=== PATIENT | male | born 1960 | race Caucasian/White ===

== ENCOUNTER 2020-09-04 07:18 | Day surgery (SDC) | payer BC, SELFPAY ==
[2020-09-02 09:22] VITALS: BMI 27.8
--- NOTE | 2020-09-02 09:30 | HO.ANESPROP2 ---
Documented by User: Irina Roberts 09/02/20 09:32 HPI - Anesthesia Eval Consult details Narrative: 59yo M for screening colonoscopy [facility] Past Medical History Medical History BPH (benign prostatic hyperplasia) Hyperlipidemia Hypertension Sleep apnea Surgical History Surgical History Hx of colonoscopy Social History Social History Smoking Status: Never smoker Use of substances other than those prescribed or required for medical reasons: No Advance Directives: No Advance Directives Information Provided: Yes Advance Directives on File: No Meds Allergies Allergy/AdvReac Type Severity Reaction Status Date / Time No Known Allergies Allergy Verified 09/02/20 09:20 Home Medications Medication Instructions Recorded Confirmed Type amlodipine-olmesartan 1 tab PO DAILY 09/02/20 09/02/20 History rosuvastatin 1 tab PO DAILY 09/02/20 09/02/20 History Exam Exam Date and Time: September 02, 2020 0930 Height,Weight and Vital Signs: Height 5 ft 8 in Weight 83.007 kg Assessment and Plan Assessment Anesthesia Assessment: Chart Reviewed Documented by User: De Castro MD 09/04/20 07:49 [facility] Past Medical History Medical History BPH (benign prostatic hyperplasia) Hyperlipidemia Hypertension Sleep apnea Surgical History Surgical History Hx of colonoscopy Social History Social History Smoking Status: Never smoker Use of substances other than those prescribed or required for medical reasons: No Advance Directives: No Advance Directives Information Provided: Yes Advance Directives on File: No Meds Allergies Allergy/AdvReac Type Severity Reaction Status Date / Time No Known Allergies Allergy Verified 09/02/20 09:20 Home Medications Medication Instructions Recorded Confirmed Type amlodipine-olmesartan 1 tab PO DAILY 09/02/20 09/02/20 History rosuvastatin 1 tab PO DAILY 09/02/20 09/02/20 History Exam Airway Mallampati Class: II TM Dist: >3cm Neck ROM: Full Loose/Missing/Broken Teeth: No Heart: rrr Lungs: nl Other: ao Assessment and Plan Assessment Anesthesia Assessment: Anesthesia Plan Discussed and Chart Reviewed Final Anesthetic Review NPO: Yes ASA Class: II Final Preanesthetic Review: No Changes in Pt Med Stat, Meds/Allgs Chart Reviewed, Consent Obtained/Reviewed and Anes Risks/Benef Reviewed Patient Risk: Intermediate Procedure Risk: Low Assessment/Block/Sedation in SS: Assess/Block/Sedation-SS Anesthetic Plan Anesthetic Plan: MAC: Disposition: Standard PACU
[2020-09-04 07:50] VITALS: BP 145/92; PULSE 93; RESP 16; TEMP 36.3; O2SAT 100
--- NOTE | 2020-09-04 07:54 | PC.NURSE ---
This RN attempted IV access x2 unsuccesssful. 22g to Right AC obtained by Angela BRADY
[2020-09-04] MEDS: Lactated Ringers 1,000 ML 100 ML IVCONT (07:56)
--- NOTE | 2020-09-04 08:14 | MHC.SHP ---
Pre-Procedural Eval Section A The patient is an INPATIENT: No The History & Physical has been completed within 30 days and I have reviewed it.: No Section B Chief Complaint: screening Details of Present Illness: Colon cancer screening--non high risk Relevant Family History (Specify if Yes): No Relevant Social History: None Present Medications: see Short Stay Collaborative assessment Medical History: Significant History (Hypertension, Hyperlipidemia) History of Previous Operations: Relevant previous surgery/procedure and date(s) (2008-Colonoscopy--neg) Allergies: Allergies Allergy/AdvReac Type Severity Reaction Status Date / Time No Known Allergies Allergy Verified 09/02/20 09:20 Review of Systems Sugical H&P ROS: Negative: Constitution, Cardiovascular and Respiratory Review of Systems Comment: General ros is negative Exam Surgical H&P Exam: Normal: HEENT, Normal: Heart, Normal: Lungs and Normal: Extremities Exam Comment: Normal exam Plan Diagnosis/Plan: Unchanged Patient has been examined and remains a candidate for the planned procedure--YES
[2020-09-04 09:07] VITALS: BP 114/71; PULSE 87; RESP 16; TEMP 36.1; O2SAT 99
[2020-09-04 09:21] VITALS: BP 124/79; PULSE 61; RESP 18; TEMP 36.2; O2SAT 96
--- NOTE | 2020-09-04 09:53 | HO.POSTANES ---
Post Anesthesia Evaluation Post Anesthesia Evaluation Vital Signs: Vital Signs Temp Pulse Resp BP Pulse Ox 09/04/20 09:21 97.2 F 61 18 124/79 96 09/04/20 09:07 97 F 87 16 114/71 99 09/04/20 07:50 97.4 F 93 16 145/92 H 100 Anesthesia: Monitored Mental Status: Awake Pain Control: Satisfactory Nausea/Vomiting: None Hydration: Adequate Anesthesia-Related Issues: No Anes. Related Issues
--- NOTE | 2020-09-04 20:24 | OP_ITS ---
SURGEON: Halie Ramos MD PREOPERATIVE DIAGNOSIS: Colon cancer screening. POSTOPERATIVE DIAGNOSIS: Diverticulosis. PROCEDURE PERFORMED: Colonoscopy. ESTIMATED BLOOD LOSS: No blood loss. COMPLICATIONS: No complications. ANESTHESIA: Monitored. ANESTHESIOLOGIST: Nayan Garcia CRNA ASSISTANTS: NONE SPECIMENS: No specimens removed. CAREER DEVELOPMENT FACILITATOR: Dr. Ramos. FINDINGS: Digital rectal exam revealed prostate to be slightly enlarged. No nodularity appreciated. No firmness. Video colonoscope was introduced without difficulty. It was navigated into the rectosigmoid. There was some submucosal hemorrhagic change, prep effect in the region of the rectosigmoid, sigmoid associated with some diverticulosis and suspected mild prolapse. Scope advanced through this area on up through descending, transverse, ascending colon down into the cecum. Appendiceal orifice was seen. Ileocecal valve was well seen. No mucosal abnormalities were appreciated. Slow rotational views on withdrawing the scope. No additional mucosal lesions were seen. 1+ internal hemorrhoids were noted on withdrawing the scope. PLAN AND CURRENT RECOMMENDATIONS: Repeat asymptomatic screening in this patient is 10 years. The patient was reminded that any intercurrent bleeding or iron deficiency would warrant earlier exam. GRAFT OR IMPLANTS: No grafts or implants. CONDITION: Postprocedure, stable. Halie Ramos MD MEN/MODL / [id number] MTDD
== END 2020-09-04 10:00 | disposition home or self-care (01) ==
PROVIDERS: Internal Medicine Gastroenterology; PCP Internal Medicine; Visit Provider Internal Medicine
PROC: 0DJD8ZZ Inspection of Lower Intestinal Tract, Via Natural or Artificial Opening Endoscopic (ICD-10-PCS; CPT 45378; principal; 2020-09-04 08:20)
DX: Z12.11 Encounter for screening for malignant neoplasm of colon (principal); K57.30 Diverticulosis of large intestine without perforation or abscess without bleeding; K64.8 Other hemorrhoids; I10 Essential (primary) hypertension; E78.5 Hyperlipidemia, unspecified; G47.33 Obstructive sleep apnea (adult) (pediatric); Z79.899 Other long term (current) drug therapy
CPT/HCPCS: 45378

== ENCOUNTER 2020-09-11 09:22 | Outpatient (REF) | payer BC, SELFPAY ==
[2020-09-11 11:24] LABS: Hematocrit 43.9 % (42-52); Hemoglobin 14.4 g/dl (14.0-18.0); Mean Corpuscular HGB Conc 32.8 g/dl (31.0-36.0); Mean Corpuscular Hemoglobin 30.1 pg (27.0-33.0); Mean Corpuscular Volume 91.8 fL (80-98); Mean Platelet Volume 9.5 fL (9.4-12.4); Platelet Count 228 X10*3/uL (160-400); Red Blood Count 4.78 X10*6/uL (4.60-5.80); Red Cell Distribution Width 12.4 % (11.0-16.0); White Blood Count 5.6 X10*3/uL (4.8-10.8)
[2020-09-11 11:41] LABS: Alanine Aminotransferase 25 U/L (0-40); Albumin Level 4.5 g/dL (3.5-5.0); Alkaline Phosphatase 66 U/L (39-117); Anion Gap 14 (12-20); Aspartate Amino Transferase 24 U/L (5-37); Bilirubin Total 0.9 mg/dL (0.0-1.0); Blood Urea Nitrogen 21 mg/dL (9-16); Calcium 9.4 mg/dL (8.4-10.2); Carbon Dioxide 23 mmol/L (22-29); Chloride 108 mmol/L (96-108); Cholesterol 184 mg/dL; Estimated Glomerular Filt Rate > 60; Glucose Fasting 97 mg/dL (60-99); HDL Cholesterol 32 mg/dL; LDL Cholesterol Calculated 103 mg/dl; Potassium 4.1 mmol/l (3.3-5.1); Sodium 141 mmol/L (135-145); Total Protein 7.5 g/dL (6.5-8.0); Triglycerides 249 mg/dL
[2020-09-11 12:54] LABS: Glucose Urine UA NEG (NEG); Leukocyte Esterase Urine NEG (NEG); Nitrite Urine NEG (NEG); Specific Gravity - Urine >= 1.030 (1.005-1.025); Urine Blood NEG (NEG); Urine Ketones NEG (NEG); Urine Protein NEG (NEG-TRACE)
[2020-09-11 12:57] LABS: Appearance Urine CLEAR; Color Urine YELLOW
== END 2020-09-11 09:23 | disposition home or self-care (01) ==
LOC: HO.HMGCLDS 09:22
PROVIDERS: PCP Internal Medicine; Visit Provider Internal Medicine
DX: E78.5 Hyperlipidemia, unspecified (principal); I10 Essential (primary) hypertension
CPT/HCPCS: 36415; 80053; 80061; 81003; 84153; 85027

== ENCOUNTER → 2020-10-20 10:44 | Outpatient (BNVA) | payer BC, SELFPAY | PROVIDERS: PCP Internal Medicine; Referring Provider Internal Medicine; Visit Provider Nurse Practitioner | DX: Z76.89 Persons encountering health services in other specified circumstances (principal) ==

== ENCOUNTER 2021-03-16 08:15 | Outpatient (REF) | payer BC, SELFPAY ==
[2021-03-16 12:27] LABS: Alanine Aminotransferase 31 U/L (0-40); Albumin Level 4.5 g/dL (3.5-5.0); Alkaline Phosphatase 66 U/L (39-117); Anion Gap 14 (12-20); Aspartate Amino Transferase 22 U/L (5-37); Bilirubin Total 0.7 mg/dL (0.0-1.0); Blood Urea Nitrogen 13 mg/dL (9-16); Calcium 9.7 mg/dL (8.4-10.2); Carbon Dioxide 24 mmol/L (22-29); Chloride 107 mmol/L (96-108); Cholesterol 152 mg/dL; Estimated Glomerular Filt Rate > 60; Glucose Fasting 116 mg/dL (60-99); HDL Cholesterol 33 mg/dL; LDL Cholesterol Calculated 86 mg/dl; Potassium 4.3 mmol/L (3.3-5.1); Sodium 141 mmol/L (135-145); Total Protein 7.3 g/dL (6.5-8.0); Triglycerides 169 mg/dL
== END 2021-03-16 08:16 | disposition home or self-care (01) ==
LOC: HO.HMGCLDS 08:15
PROVIDERS: PCP Internal Medicine; Visit Provider Internal Medicine
DX: Z00.00 Encounter for general adult medical examination without abnormal findings (principal); E78.5 Hyperlipidemia, unspecified; I10 Essential (primary) hypertension
CPT/HCPCS: 36415; 80053; 80061

== ENCOUNTER 2022-11-04 08:42 | Outpatient (REF) | payer BC, SELFPAY ==
[2022-11-04 11:20] LABS: MANUAL DIFF FLAG NO
[2022-11-04 11:30] LABS: Appearance Urine Clear; Color Urine Yellow; Glucose Urine UA Negative (Negative); Leukocyte Esterase Urine Negative (Negative); Nitrite Urine Negative (Negative); PH 5.5 (5.0-9.0); Urine Blood Negative (Negative); Urine Ketones Negative (Negative); Urine Protein Negative (Neg-Trace)
[2022-11-04 11:44] LABS: Basophils Percent Auto 0.6 % (0-2); Eosinophils Absolute Auto 0.3 X10*3/uL (0.0-0.4); Eosinophils Percent Auto 4.1 % (0-4); Hematocrit 45.5 % (42.0-52.0); Hemoglobin 14.9 g/dl (14.0-18.0); Imm Gran Abs Auto 0.02 X10*3/uL (0.00-0.03); Imm Gran Pct Auto 0.3 % (0.0-0.4); Lymphocytes Absolute Auto 2.1 X10*3/uL (1.2-4.9); Mean Corpuscular HGB Conc 32.7 g/dl (31.0-36.0); Mean Corpuscular Hemoglobin 29.6 pg (27.0-33.0); Mean Corpuscular Volume 90.5 fL (80.0-98.0); Mean Platelet Volume 9.1 fL (9.4-12.4); Monocytes Absolute Auto 0.6 X10*3/uL (0.1-1.2); Monocytes Percent Auto 10.4 % (2-11); Neutrophils Absolute Auto 3.1 x10*3/uL (2.0-8.3); Neutrophils Percent Auto 50.6 % (45-73); Platelet Count 241 X10*3/uL (160-400); Red Blood Count 5.03 X10*6/uL (4.60-5.80); Red Cell Distribution Width 12.2 % (11.0-16.0); White Blood Count 6.2 X10*3/uL (4.8-10.8)
[2022-11-04 12:05] LABS: Estimated Average Glucose 123 mg/dL; Hemoglobin A1c % 5.9 %
[2022-11-04 13:26] LABS: Alanine Aminotransferase 35 U/L (0-40); Albumin Level 4.4 g/dL (3.5-5.0); Alkaline Phosphatase 69 U/L (39-117); Anion Gap 11 (12-20); Aspartate Amino Transferase 28 U/L (5-37); Bilirubin Total 0.8 mg/dL (0.0-1.0); Blood Urea Nitrogen 12 mg/dL (9-16); Calcium 9.7 mg/dL (8.4-10.2); Carbon Dioxide 25 mmol/L (22-29); Chloride 108 mmol/L (96-108); Cholesterol 146 mg/dL; Estimated Glomerular Filt Rate > 60; Glucose Fasting 119 mg/dL (60-99); HDL Cholesterol 30 mg/dL; LDL Cholesterol Calculated 77 mg/dl; Potassium 4.1 mmol/L (3.3-5.1); Sodium 140 mmol/L (135-145); Total Protein 7.1 g/dL (6.5-8.0); Triglycerides 195 mg/dL
== END 2022-11-04 08:43 | disposition home or self-care (01) ==
LOC: HO.HMGCLDS 08:42
PROVIDERS: PCP Internal Medicine; Visit Provider Internal Medicine
DX: I10 Essential (primary) hypertension (principal); R73.9 Hyperglycemia, unspecified; E78.5 Hyperlipidemia, unspecified
CPT/HCPCS: 36415; 80053; 80061; 81003; 83036; 85025

== ENCOUNTER 2024-05-10 09:42 | Outpatient (REF) | payer BC, SELFPAY ==
[2024-05-10 13:09] LABS: MANUAL DIFF FLAG NO
[2024-05-10 13:21] LABS: Basophils Percent Auto 0.7 % (0-2); Eosinophils Absolute Auto 0.2 X10*3/uL (0.0-0.4); Eosinophils Percent Auto 3.9 % (0-4); Hematocrit 44.3 % (42.0-52.0); Imm Gran Abs Auto 0.01 X10*3/uL (0.00-0.03); Imm Gran Pct Auto 0.2 % (0.0-0.4); Lymphocytes Percent Auto 32.8 % (20-40); Mean Corpuscular HGB Conc 33.9 g/dl (31.0-36.0); Mean Corpuscular Hemoglobin 31.3 pg (27.0-33.0); Mean Corpuscular Volume 92.3 fL (80.0-98.0); Mean Platelet Volume 9.1 fL (9.4-12.4); Monocytes Absolute Auto 0.6 X10*3/uL (0.1-1.2); Monocytes Percent Auto 10.3 % (2-11); Neutrophils Absolute Auto 3.1 x10*3/uL (2.0-8.3); Neutrophils Percent Auto 52.1 % (45-73); Platelet Count 236 X10*3/uL (160-400); Red Cell Distribution Width 12.4 % (11.0-16.0)
[2024-05-10 13:26] LABS: Appearance Urine Turbid; Color Urine Yellow; Glucose Urine UA Negative (Negative); Leukocyte Esterase Urine Negative (Negative); Nitrite Urine Negative (Negative); PH 5.5 (5.0-9.0); Specific Gravity - Urine 1.025 (1.005-1.025); Urine Blood Negative (Negative); Urine Ketones Negative (Negative); Urine Protein Negative (Neg-Trace)
[2024-05-10 13:30] LABS: Bacteria Urine None Seen (None Seen); Hyaline Casts Urine 0-2 /LPF (0-2); RBC Urine 0-2 /HPF (0-2); Squamous Epithelial Cell Urine 0-2 /HPF (0-2); WBC Urine 0-5 /HPF (0-5)
[2024-05-10 13:32] LABS: Estimated Average Glucose 126 mg/dL
[2024-05-10 13:40] LABS: Alanine Aminotransferase 49 U/L (0-40); Albumin Level 4.3 g/dL (3.5-5.0); Alkaline Phosphatase 65 U/L (39-117); Anion Gap 12 (12-20); Aspartate Amino Transferase 37 U/L (5-37); Blood Urea Nitrogen 15 mg/dL (9-16); Calcium 9.5 mg/dL (8.4-10.2); Carbon Dioxide 23 mmol/L (22-29); Chloride 109 mmol/L (96-108); Cholesterol 127 mg/dL (<200); Estimated Glomerular Filt Rate > 60; Glucose Fasting 112 mg/dL (60-99); HDL Cholesterol 28 mg/dL (>40); LDL Cholesterol Calculated 70 mg/dL (<100); Potassium 4.1 mmol/L (3.3-5.1); Sodium 140 mmol/L (135-145); Total Protein 7.4 g/dL (6.5-8.0); Triglycerides 147 mg/dL (<150)
== END 2024-05-10 09:43 | disposition home or self-care (01) ==
LOC: HO.HMGCLDS 09:42
PROVIDERS: PCP Internal Medicine; Visit Provider Internal Medicine
DX: Z00.00 Encounter for general adult medical examination without abnormal findings (principal); R73.9 Hyperglycemia, unspecified; I10 Essential (primary) hypertension; E78.5 Hyperlipidemia, unspecified
CPT/HCPCS: 36415; 80053; 80061; 81001; 83036; 85025

== ENCOUNTER 2024-05-16 08:56 | Outpatient (AMB) | payer BC, SELFPAY ==
--- NOTE | 2024-05-16 09:15 | MHC.PC.OV ---
Vital Signs 05/16/24 09:16 Height 5 ft 8 in Weight 190 lb BMI 28.9 BP 120/84 Blood Pressure Location Lt brachial Position Sitting Pulse 96 Pulse Source Pulse Oximeter Pulse Oximetry (%) 98 Oxygen Delivery Method Room Air Intake Visit Reasons: Annual Physical Intake Note: Pt is here today for PE. Allergies No Known Allergies Allergy (Verified 05/16/24 09:18) Medication List - Last Reconciled 05/16/24 by Laura Montejo MD amlodipine-olmesartan 5-20 mg 1 tab PO DAILY rosuvastatin 10 mg PO DAILY Tobacco use date assessed: 05/16/24 Fall risk assessment: No Falls in past year Last assessed Fall Risk: 05/16/24 Dental Screening Dental Screen Date: 05/16/24 Did you have a dental visit in the last 12 months?: Yes Did you have a dental problem in the last 6 months where you did not have access to dental care?: No Was dental information given to patient?: Patient has dentist HPI Annual Physical HPI Details Pt presents for PE. Pt c/o chronic R lateral thigh pain worse when walking for a long time at work. Patient denies lower back pain or right knee pain or swelling. [facility] Medical History Hyperglycemia Normal colonoscopy Annual physical exam BPH (benign prostatic hyperplasia) Sleep apnea Hyperlipidemia Hypertension Surgical History Hx of colonoscopy Family History Father No problems noted. Mother HTN (hypertension) Stroke Brother No problems noted. Brother No problems noted. Son No problems noted. Social History Household Members Other:: SON Housing: House Alcohol intake: current Alcohol intake frequency: holidays/special occasions only Alcohol type: beer Patient Tobacco Use Status: Never used Tobacco e-Cigarette/Vaping Use: Never Used service: No Current occupational status: employed Current occupation: [employer] Cognitive needs: No Hearing needs: No Vision needs: No Questionnaire PHQ-9 Over the last 2 weeks, how often have you been bothered by any of the following problems? 1. Little interest or pleasure in doing things: not at all 2. Feeling down, depressed, or hopeless: not at all 3. Trouble falling or staying asleep, or sleeping too much: not at all 4. Feeling tired or having little energy: several days 5. Poor appetite or overeating: not at all 6. Feeling bad about yourself - or that you are a failure or have let yourself or your family down: not at all 7. Trouble concentrating on things, such as reading the newspaper or watching television: not at all 8. Moving or speaking so slowly that other people could have noticed. Or the opposite - being so fidgety or restless that you have been moving around a lot more than usual: not at all 9. Thoughts that you would be better off or of hurting yourself in some way: not at all Total score: 1 Depression Screening Interpretation: Negative Depression Screening Done: Yes Source: Developed by Drs. Reuben Arreola, Mai Groe, Chaparro Muniz and colleagues, with an educational keisha from [employer]. Thrive Questionnaire Date Thrive assessed: 05/16/24 I am a: Patient What is your living situation today?: I have a steady place to live Within the past 12 months, did the food you bought not last and you didn't have the money to get more?: Never true Within the past 12 months, did you worry whether your food would run out before you got money to buy more?: Never true Do you have trouble paying for medicines?: No Do you have trouble getting transportation to medical appointments?: No Do you have trouble paying your heating and electricity bill?: No Do you have trouble taking care of your child, family member or friend?: No Do you have trouble with day-to-day activities such as bathing, preparing meals, shopping, managing finances, etc.?: No Are you currently unemployed and looking for a job?: No Are you interested in more education?: No Please select the resources that you would like help with: None THRIVE Score: 0 AUDIT C Alcohol Use Questionnaire (AUDIT-C) 1. How often do you have a drink containing alcohol?: Never 3. How often do you have six or more drinks on one occasion?: Never Total Score: 0 OCTAVIA-7 AMB Questionnaire OCTAVIA-7 Date OCTAVIA - 7 assessed: 05/16/24 Feeling nervous, anxious, or on edge: 0 = Not at all Not being able to stop or control worryin = Not at all Worrying too much about different things: 0 = Not at all Trouble relaxin = Not at all Being so restless that it is hard to sit still: 0 = Not at all Becoming easily annoyed or irritable: 0 = Not at all Feeling afraid as if something awful might happen: 0 = Not at all Total OCTAVIA-7 score (0-4 normal; 5-9 mild; 10-14 moderate; 15-21 severe): 0 Source: Developed by Drs. Reuben Arreola, Mai Gore, Chaparro Muniz and colleagues, with an educational keisha from [employer]. Review of Systems Const All systems reviewed & are unremarkable except as noted in HPI and below Reports no additional complaints Eyes Reports no additional complaints ENT Reports no additional complaints Card Reports no additional complaints Resp Reports no additional complaints GI Reports no additional complaints Reports no additional complaints Physical exam (Primary Care) Vital Signs: Last Vital Signs Pulse 96 05/16/24 09:16 BP 120/84 05/16/24 09:16 Pulse Ox 98 05/16/24 09:16 Oxygen Delivery Method Room Air 05/16/24 09:16 BMI result Body Mass Index 28.9 Tobacco/Smoking Status: Tobacco use Status Tobacco use date assessed 05/16/24 05/16/24 09:24 Patient Tobacco Use Status Never used Tobacco 05/16/24 09:24 e-Cigarette/Vaping Use Never Used 05/16/24 09:24 PHQ-9: PHQ-9 Score PHQ-9: Total score 1 05/16/24 09:24 Depression Screening Interpretation: Negative Thrive Assessment: Date of Thrive Assessment Date Thrive assessed 05/16/24 05/16/24 09:24 Const General: no acute distress HENMT Head: Yes normal to inspection Ears: TM's normal bilaterally Face and sinus: Yes normal facial exam Throat: Yes posterior oropharynx normal Eyes General: appearance normal, both eyes and all related structures Neck Neck: Yes no lymphadenopathy and Yes supple Resp Effort & Inspection: normal respiratory effort Auscultation: clear to auscultation bilaterally Cardio Rhythm: regular rhythm Heart sounds: S1 normal heart sound present and S2 normal heart sound present GI Inspection: Yes normal to inspection Palpation (GI): Soft to palpation Percussion: Yes normal to percussion Auscultation: normal bowel sounds Extrem Other: There is a decreased range of motion in the right hip, right trochanteric area reproducible tenderness, no soft tissue swelling General: Yes no clubbing, cyanosis or edema Assessment and Plan Assessment & Plan (1) Hypertension: Code(s): I10 - Essential (primary) hypertension Plan: Continue current medications (2) Annual physical exam: Code(s): Z00.00 - Encounter for general adult medical examination without abnormal findings Plan: Well-balanced diet regular physical activity weight loss discussed with the patient. (3) Hyperlipidemia: Code(s): E78.5 - Hyperlipidemia, unspecified Plan: Continue statin (4) BPH (benign prostatic hyperplasia): Comment: f/u urology Code(s): N40.0 - Benign prostatic hyperplasia without lower urinary tract symptoms Plan: Follow-up with urology (5) Trochanteric bursitis of right hip: Code(s): M70.61 - Trochanteric bursitis, right hip Plan: X-ray of the hip and PT were recommended but patient declined. He was giving home exercise Orders: Orders Complete Blood Count Auto Diff 1 Year I10 - Essential (primary) hypertension, Z00.00 - Encounter for general adult medical examination without abnormal findings Lipid Panel 1 Year I10 - Essential (primary) hypertension, Z00.00 - Encounter for general adult medical examination without abnormal findings Comprehensive [place]. Panel Fast 1 Year I10 - Essential (primary) hypertension, Z00.00 - Encounter for general adult medical examination without abnormal findings Hemoglobin A1c 1 Year I10 - Essential (primary) hypertension, Z00.00 - Encounter for general adult medical examination without abnormal findings Medications: Refilled amlodipine-olmesartan 5-20 mg 1 tab PO DAILY 90 tabs 3RF rosuvastatin 10 mg PO DAILY 90 tabs 3RF Coding Level of Care Code Est Pt Prev Care >65y(34187) Diagnoses Hypertension I10 Annual physical exam Z00.00 Hyperlipidemia E78.5 BPH (benign prostatic hyperplasia) N40.0 Trochanteric bursitis of right hip M70.61
[2024-05-16 09:16] VITALS: BP 120/84; PULSE 96; O2SAT 98; BMI 28.9
== END 2024-05-16 09:47 | disposition home or self-care (01) ==
PROVIDERS: PCP Internal Medicine; Visit Provider Internal Medicine
DX: I10 Essential (primary) hypertension (principal); Z00.00 Encounter for general adult medical examination without abnormal findings; E78.5 Hyperlipidemia, unspecified; N40.0 Benign prostatic hyperplasia without lower urinary tract symptoms; M70.61 Trochanteric bursitis, right hip
CPT/HCPCS: 99397

== ENCOUNTER 2025-01-23 11:12 | Outpatient (AMB) | payer BC, SELFPAY ==
[2025-01-23 11:21] VITALS: BP 126/82; PULSE 94; RESP 20; TEMP 37.2; O2SAT 99; BMI 29.8
--- NOTE | 2025-01-23 11:21 | A.OFFPC_ITS ---
Vital Signs 01/23/25 11:21 Height 5 ft 8 in Weight 196 lb BMI 29.8 BP 126/82 Blood Pressure Location Lt brachial Position Sitting Respiration 20 Pulse 94 Pulse Source Pulse Oximeter Temp 98.9 F Temp Source Oral Pulse Oximetry (%) 99 Oxygen Delivery Method Room Air Intake Visit Reasons: rash Intake Note: Pt is here today for a sick visit. Pt c/o rash all over his body for a month now. Allergies No Known Allergies Allergy (Verified 01/23/25 11:56) Medication List - Last Reconciled 01/23/25 by Laura Montejo MD amlodipine-olmesartan 5-20 mg 1 tab PO DAILY rosuvastatin 10 mg PO DAILY Tobacco use date assessed: 01/23/25 Fall risk assessment: No Falls in past year Last assessed Fall Risk: 01/23/25 Dental Screening Dental Screen Date: 01/23/25 Did you have a dental visit in the last 12 months?: Yes Did you have a dental problem in the last 6 months where you did not have access to dental care?: No Was dental information given to patient?: Patient has dentist HPI rash HPI Details Patient presents for the follow-up of urgent care visit for rash on the legs. Patient reports itchy skin all over the body. The rash on the legs healed. Patient did not change the laundry detergent or body soap but reports taking hot shower in the winter. Hypertension hyperlipidemia are controlled on current medications. [facility] Medical History Hyperglycemia Normal colonoscopy Annual physical exam BPH (benign prostatic hyperplasia) Sleep apnea Hyperlipidemia Hypertension Surgical History Hx of colonoscopy Family History Father No problems noted. Mother HTN (hypertension) Stroke Brother No problems noted. Brother No problems noted. Son No problems noted. 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 Reuben Arreola, Mai Gore, Chaparro Muniz and colleagues, with an educational keisha from [employer]. Review of Systems Const All systems reviewed & are unremarkable except as noted in HPI and below ENT Reports no additional complaints Card Reports no additional complaints Resp Reports no additional complaints GI Reports no additional complaints Reports no additional complaints Physical exam (Primary Care) Vital Signs: Last Vital Signs Temp 98.9 F 01/23/25 11:21 Pulse 94 01/23/25 11:21 Resp 20 01/23/25 11:21 BP 126/82 01/23/25 11:21 Pulse Ox 99 01/23/25 11:21 Oxygen Delivery Method Room Air 01/23/25 11:21 BMI result Body Mass Index 29.8 Tobacco/Smoking Status: Tobacco use Status Tobacco use date assessed 01/23/25 01/23/25 11:59 Patient Tobacco Use Status Never used Tobacco 01/23/25 11:22 e-Cigarette/Vaping Use Never Used 01/23/25 11:22 Thrive Assessment: Date of Thrive Assessment Date Thrive assessed 05/16/24 01/23/25 11:22 Const General: no acute distress Eyes General: appearance normal, both eyes and all related structures Resp Effort & Inspection: normal respiratory effort Auscultation: clear to auscultation bilaterally Cardio Rhythm: regular rhythm Heart sounds: S1 normal heart sound present and S2 normal heart sound present GI Inspection: Yes normal to inspection Palpation (GI): Soft to palpation Percussion: Yes normal to percussion Auscultation: normal bowel sounds Skin Other: No rash present there is a few excoriation lizama on the shins of both legs Coding Level of Care Code Est Pt Level 3 (89294) Diagnoses Dry skin dermatitis L85.3 Hypertension I10 Assessment & Plan Assessment & Plan (1) Dry skin dermatitis: Code(s): L85.3 - Xerosis cutis Category: Medical Plan: Patient was advised to avoid bathing and a hot water, change shower gel to more moisturizing and use body lotion. (2) Hypertension: Code(s): I10 - Essential (primary) hypertension Category: Medical Plan: Continue current medications Medications: Refilled rosuvastatin 10 mg PO DAILY 90 tabs 3RF amlodipine-olmesartan 5-20 mg 1 tab PO DAILY 90 tabs 3RF
== END 2025-01-23 12:20 | disposition home or self-care (01) ==
PROVIDERS: PCP Internal Medicine; Visit Provider Internal Medicine
DX: L85.3 Xerosis cutis (principal); I10 Essential (primary) hypertension

== ENCOUNTER → 2025-01-23 11:12 | Outpatient (BNVA) | payer BC, SELFPAY | PROVIDERS: PCP Internal Medicine; Visit Provider Internal Medicine ==

== ENCOUNTER 2025-05-08 09:49 | Outpatient (AMB) | payer BC, SELFPAY ==
[2025-05-08 09:52] VITALS: BP 126/80; PULSE 102; RESP 18; TEMP 36.7; O2SAT 96; BMI 29.6
--- NOTE | 2025-05-08 09:52 | MHC.PC.OV ---
Vital Signs 05/08/25 09:52 Height 5 ft 8 in Weight 195 lb BMI 29.6 BP 126/80 Blood Pressure Location Rt brachial Position Sitting Respiration 18 Pulse 102 H Pulse Source Pulse Oximeter Temp 98.1 F Temp Source Oral Pulse Oximetry (%) 96 Oxygen Delivery Method Room Air Intake Visit Reasons: medication Intake Note: Pt is here today for a follow up to discuss changing medication due to insurance coverage. Allergies No Known Allergies Allergy (Verified 05/08/25 09:56) Medication List - Last Reconciled 05/08/25 by Laura Montejo MD amlodipine-olmesartan 5-20 mg 1 tab PO DAILY rosuvastatin 10 mg PO DAILY Tobacco use date assessed: 05/08/25 Fall risk assessment: No Falls in past year Last assessed Fall Risk: 05/08/25 Dental Screening Dental Screen Date: 01/23/25 HPI HPI Comments History of Present Illness Details Pt presents for HTN and hyperlipid, stable. Patient is changing his health insurance to Medicare and [employer] and was notified that his regular medications are not covered by his new insurance. Patient was not given a list of formulary medications [facility] Medical History Hyperglycemia Normal colonoscopy Annual physical exam BPH (benign prostatic hyperplasia) Sleep apnea Hyperlipidemia Hypertension Surgical History Hx of colonoscopy Family History Father No problems noted. Mother HTN (hypertension) Stroke Brother No problems noted. Brother No problems noted. Son No problems noted. 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 1. Little interest or pleasure in doing things: not at all 2. Feeling down, depressed, or hopeless: not at all 3. Trouble falling or staying asleep, or sleeping too much: not at all 4. Feeling tired or having little energy: several days 5. Poor appetite or overeating: not at all 6. Feeling bad about yourself - or that you are a failure or have let yourself or your family down: not at all 7. Trouble concentrating on things, such as reading the newspaper or watching television: not at all 8. Moving or speaking so slowly that other people could have noticed. Or the opposite - being so fidgety or restless that you have been moving around a lot more than usual: not at all 9. Thoughts that you would be better off or of hurting yourself in some way: not at all Total score: 1 Depression Screening Interpretation: Negative Depression Screening Done: Yes 00084 - PHQ-9 Billing: Yes Source: Developed by Drs. Reuben Arreola, Mai Gore, Chaparro Muniz and colleagues, with an educational keisha from [employer]. Thrive Questionnaire Date Thrive assessed: 05/08/25 I am a: Patient What is your living situation today?: I have a steady place to live Within the past 12 months, did the food you bought not last and you didn't have the money to get more?: Never true Within the past 12 months, did you worry whether your food would run out before you got money to buy more?: Never true Do you have trouble paying for medicines?: No Do you have trouble getting transportation to medical appointments?: No Do you have trouble paying your heating and electricity bill?: No Do you have trouble taking care of your child, family member or friend?: No Do you have trouble with day-to-day activities such as bathing, preparing meals, shopping, managing finances, etc.?: No Are you currently unemployed and looking for a job?: No Are you interested in more education?: No Please select the resources that you would like help with: None THRIVE Score: 0 AUDIT C Alcohol Use Questionnaire (AUDIT-C) 1. How often do you have a drink containing alcohol?: Never 3. How often do you have six or more drinks on one occasion?: Never Total Score: 0 OCTAVIA-7 AMB Questionnaire OCTAVIA-7 Date OCTAVIA - 7 assessed: 05/08/25 Feeling nervous, anxious, or on edge: 0 = Not at all Not being able to stop or control worryin = Not at all Worrying too much about different things: 0 = Not at all Trouble relaxin = Not at all Being so restless that it is hard to sit still: 0 = Not at all Becoming easily annoyed or irritable: 0 = Not at all Feeling afraid as if something awful might happen: 0 = Not at all Total OCTAVIA-7 score (0-4 normal; 5-9 mild; 10-14 moderate; 15-21 severe): 0 Source: Developed by Drs. Reuben Arreola, Mai Gore, Chaparro Muniz and colleagues, with an educational keisha from [employer]. OCTAVIA-7 Assessment Billing OCTAVIA-7 Assessment Tool: OCTAVIA-7 Assessment 76949 Review of Systems Const All systems reviewed & are unremarkable except as noted in HPI and below Eyes Reports no additional complaints ENT Reports no additional complaints Card Reports no additional complaints Resp Reports no additional complaints Reports no additional complaints Physical exam (Primary Care) Vital Signs: Last Vital Signs Temp 98.1 F 05/08/25 09:52 Pulse 102 H 05/08/25 09:52 Resp 18 05/08/25 09:52 BP 126/80 05/08/25 09:52 Pulse Ox 96 05/08/25 09:52 Oxygen Delivery Method Room Air 05/08/25 09:52 BMI result Body Mass Index 29.6 Tobacco/Smoking Status: Tobacco use Status Tobacco use date assessed 05/08/25 05/08/25 09:58 Patient Tobacco Use Status Never used Tobacco 05/08/25 09:58 e-Cigarette/Vaping Use Never Used 05/08/25 09:58 PHQ-9: PHQ-9 Score PHQ-9: Total score 1 05/08/25 09:59 Depression Screening Interpretation: Negative Thrive Assessment: Date of Thrive Assessment Date Thrive assessed 05/08/25 05/08/25 09:59 Const General: no acute distress HENMT Head: Yes normal to inspection Neck Neck: Yes supple Resp Effort & Inspection: normal respiratory effort Auscultation: clear to auscultation bilaterally Cardio Rhythm: regular rhythm Heart sounds: S1 normal heart sound present and S2 normal heart sound present Coding Level of Care Code Est Pt Level 3 (20840) Diagnoses Hypertension I10 Hyperlipidemia E78.5 Additional Codes OCTAVIA-7 Assessment Billing - OCTAVIA-7 Assessment Tool: OCTAVIA-7 Assessment 71519 ([id number]) PHQ-9 - 73806 - PHQ-9 Billing: Yes ([id number]) Assessment & Plan Assessment & Plan (1) Hypertension: Code(s): I10 - Essential (primary) hypertension Category: Medical Plan: Change amlodipine with olmesartan to separate medications (2) Hyperlipidemia: Code(s): E78.5 - Hyperlipidemia, unspecified Category: Medical Plan: Change rosuvastatin to atorvastatin, patient will follow-up next month for physical with a fasting labs before Medications: New atorvastatin (Lipitor) 40 mg PO DAILY 90 tabs 3RF amlodipine 5 mg PO DAILY 90 tabs 3RF olmesartan 20 mg PO DAILY 90 tabs 3RF Discontinued rosuvastatin Discontinued Reason: Doctor's Order 10 mg PO DAILY 90 tabs 3RF amlodipine-olmesartan 5-20 mg Discontinued Reason: Doctor's Order 1 tab PO DAILY 90 tabs 3RF
== END 2025-05-08 10:34 | disposition home or self-care (01) ==
LOC: HO.HMCC 09:50
PROVIDERS: PCP Internal Medicine; Visit Provider Internal Medicine
DX: I10 Essential (primary) hypertension (principal); E78.5 Hyperlipidemia, unspecified

== ENCOUNTER → 2025-05-08 09:49 | Outpatient (BNVA) | payer BC, SELFPAY | PROVIDERS: PCP Internal Medicine; Visit Provider Internal Medicine | DX: I10 Essential (primary) hypertension (principal); E78.5 Hyperlipidemia, unspecified; Z79.899 Other long term (current) drug therapy | CPT/HCPCS: 96127 ==

== ENCOUNTER 2025-05-30 08:41 | Outpatient (REF) | payer BC, MEDICARE, SELFPAY ==
[2025-05-30 10:30] LABS: MANUAL DIFF FLAG NO
[2025-05-30 10:43] LABS: Hematocrit 44.6 % (42.0-52.0); Hemoglobin 15.3 g/dl (14.0-18.0); Imm Gran Abs Auto 0.04 X10*3/uL (0.00-0.03); Imm Gran Pct Auto 0.5 % (0.0-0.4); Lymphocytes Absolute Auto 2.2 X10*3/uL (1.2-4.9); Mean Corpuscular HGB Conc 34.3 g/dl (31.0-36.0); Mean Corpuscular Hemoglobin 30.7 pg (27.0-33.0); Mean Corpuscular Volume 89.6 fL (80.0-98.0); NRBC Abs Auto 0.000 X10*3/uL (0.0-0.012); NRBC Pct Auto 0.0 /100WBC (0.0-0.2); Platelet Count 227 X10*3/uL (160-400); Red Blood Count 4.98 X10*6/uL (4.60-5.80); White Blood Count 7.4 X10*3/uL (4.8-10.8)
[2025-05-30 10:53] LABS: Hemoglobin A1C 213.5252 umol/L; Total Hemoglobin (HGBA1C) 4040.2102 umol/L
[2025-05-30 11:06] LABS: Alanine Aminotransferase 96 U/L (0-40); Albumin Level 4.4 g/dL (3.5-5.0); Alkaline Phosphatase 73 U/L (39-117); Anion Gap 12 (12-20); Aspartate Amino Transferase 72 U/L (5-37); Blood Urea Nitrogen 11 mg/dL (9-16); Calcium 9.3 mg/dL (8.4-10.2); Carbon Dioxide 23 mmol/L (22-29); Chloride 107 mmol/L (96-108); Cholesterol 151 mg/dL (<200); Estimated Glomerular Filt Rate > 60; HDL Cholesterol 30 mg/dL (>40); Potassium 4.1 mmol/L (3.3-5.1); Sodium 138 mmol/L (135-145); Total Protein 7.4 g/dL (6.5-8.0); Triglycerides 226 mg/dL (<150)
== END 2025-05-30 08:42 | disposition home or self-care (01) ==
LOC: HO.HMGCLDS 08:41
PROVIDERS: PCP Internal Medicine; Visit Provider Internal Medicine
DX: Z00.00 Encounter for general adult medical examination without abnormal findings (principal); I10 Essential (primary) hypertension; Z13.1 Encounter for screening for diabetes mellitus
CPT/HCPCS: 36415; 80053; 80061; 83036; 85025

== ENCOUNTER 2025-06-06 08:06 | Outpatient (AMB) | payer MEDICARE, SELFPAY ==
[2025-06-06 08:20] VITALS: BP 118/78; PULSE 118; RESP 18; TEMP 37.1; O2SAT 97; BMI 30.4
--- NOTE | 2025-06-06 08:20 | MHC.PC.OV ---
Vital Signs 06/06/25 08:20 Height 5 ft 8 in Weight 200 lb BMI 30.4 BP 118/78 Blood Pressure Location Lt brachial Position Sitting Respiration 18 Pulse 118 H Pulse Source Pulse Oximeter Temp 98.7 F Temp Source Oral Pulse Oximetry (%) 97 Oxygen Delivery Method Room Air Intake Visit Reasons: Annual Physical Intake Note: Pt is here today for PE. Allergies No Known Allergies Allergy (Verified 06/06/25 08:21) Medication List - Last Reconciled 06/06/25 by Laura Montejo MD amlodipine 5 mg PO DAILY atorvastatin (Lipitor) 40 mg PO DAILY olmesartan 20 mg PO DAILY Tobacco use date assessed: 06/06/25 Fall risk assessment: No Falls in past year Last assessed Fall Risk: 06/06/25 Dental Screening Dental Screen Date: 01/23/25 HPI Annual Physical HPI Details Pt presents for f/u HTN and hyperlipid, PFSH Medical History Hyperglycemia Normal colonoscopy Annual physical exam BPH (benign prostatic hyperplasia) Sleep apnea Hyperlipidemia Hypertension Surgical History Hx of colonoscopy Family History Father No problems noted. Mother HTN (hypertension) Stroke Brother No problems noted. Brother No problems noted. Son No problems noted. 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 How often do you have a drink containing alcohol?: Never 3. How often do you have six or more drinks on one occasion?: Never Total Score: 0 OCTAVIA-7 AMB Questionnaire OCTAVIA-7 Date OCTAVIA - 7 assessed: 05/08/25 Source: Developed by Drs. Reuben Arreola, Mai BChaparro Trinidad and colleagues, with an educational keisha from [employer]. Review of Systems Const All systems reviewed & are unremarkable except as noted in HPI and below Eyes Reports no additional complaints ENT Reports no additional complaints Card Reports no additional complaints Resp Reports no additional complaints GI Reports no additional complaints Physical exam (Primary Care) Vital Signs: Last Vital Signs Temp 98.7 F 06/06/25 08:20 Pulse 118 H 06/06/25 08:20 Resp 18 06/06/25 08:20 BP 118/78 06/06/25 08:20 Pulse Ox 97 06/06/25 08:20 Oxygen Delivery Method Room Air 06/06/25 08:20 BMI result Body Mass Index 30.4 Tobacco/Smoking Status: Tobacco use Status Tobacco use date assessed 06/06/25 06/06/25 08:26 Patient Tobacco Use Status Never used Tobacco 06/06/25 08:26 e-Cigarette/Vaping Use Never Used 06/06/25 08:26 Thrive Assessment: Date of Thrive Assessment Date Thrive assessed 05/08/25 06/06/25 08:26 Const General: no acute distress HENMT Face and sinus: Yes normal facial exam Throat: Yes posterior oropharynx normal Neck Neck: Yes supple Resp Effort & Inspection: normal respiratory effort Auscultation: clear to auscultation bilaterally Cardio Rhythm: regular rhythm Heart sounds: S1 normal heart sound present and S2 normal heart sound present GI Inspection: Yes normal to inspection Palpation (GI): Soft to palpation Percussion: Yes normal to percussion Auscultation: normal bowel sounds Coding Level of Care Code Est Pt Level 4 (90203) Diagnoses DM type 2 (diabetes mellitus, type 2) E11.9 Elevated LFTs R79.89 Hyperlipidemia E78.5 Hypertension I10 Assessment & Plan Assessment & Plan (1) DM type 2 (diabetes mellitus, type 2): Code(s): E11.9 - Type 2 diabetes mellitus without complications Category: Medical Plan: A1c is 7.0. ADA diet increase exercise weight loss discussed with the patient he declined taking medications. Follow-up in 3 months with a fasting labs before (2) Elevated LFTs: Code(s): R79.89 - Other specified abnormal findings of blood chemistry Category: Medical Plan: Decreasing simple carbohydrates and alcohol intake, weight loss and increasing physical activity discussed with the patient, check liver ultrasound (3) Hyperlipidemia: Code(s): E78.5 - Hyperlipidemia, unspecified Category: Medical Plan: Continue statin (4) Hypertension: Code(s): I10 - Essential (primary) hypertension Category: Medical Plan: Continue current medications Orders: Orders Hemoglobin A1c 3 Months E11.9 - Type 2 diabetes mellitus without complications, E78.5 - Hyperlipidemia, unspecified, I10 - Essential (primary) hypertension US abdomen joyner w elastography Today R79.89 - Other specified abnormal findings of blood chemistry [facility] [place]. Panel Fast 3 Months E11.9 - Type 2 diabetes mellitus without complications, E78.5 - Hyperlipidemia, unspecified, I10 - Essential (primary) hypertension Lipid Panel 3 Months E11.9 - Type 2 diabetes mellitus without complications, E78.5 - Hyperlipidemia, unspecified, I10 - Essential (primary) hypertension Microalbumin, Random (w Creat) 3 Months E11.9 - Type 2 diabetes mellitus without complications, E78.5 - Hyperlipidemia, unspecified, I10 - Essential (primary) hypertension
== END 2025-06-06 09:03 | disposition home or self-care (01) ==
PROVIDERS: PCP Internal Medicine; Visit Provider Internal Medicine
DX: E11.9 Type 2 diabetes mellitus without complications (principal); R79.89 Other specified abnormal findings of blood chemistry; E78.5 Hyperlipidemia, unspecified; I10 Essential (primary) hypertension

== ENCOUNTER → 2025-06-06 08:06 | Outpatient (BNVA) | payer MEDICARE, SELFPAY | PROVIDERS: PCP Internal Medicine; Visit Provider Internal Medicine | DX: E11.9 Type 2 diabetes mellitus without complications (principal); R79.89 Other specified abnormal findings of blood chemistry; E78.5 Hyperlipidemia, unspecified; I10 Essential (primary) hypertension | CPT/HCPCS: 99212 ==

== ENCOUNTER 2025-09-04 08:04 | Outpatient (REF) | payer MEDICARE, SELFPAY ==
--- NOTE | ~2025-09-04 | US_ITS ---
EXAMINATION: US ABDOMEN LIMITED WITH LIVER ELASTOGRAPHY HISTORY: R79.89 - Other specified abnormal findings of blood chemistry TECHNIQUE: Real-time grayscale ultrasound imaging of the right upper quadrant was performed and images were reviewed. COMPARISON: There are no prior studies available for comparison. FINDINGS: Liver: The right lobe of the liver measures 14.3 cm in size. The left lobe of the liver measures 8.8 cm in size. The liver demonstrates increased echotexture, consistent with steatosis. No focal mass or intrahepatic biliary ductal dilatation is identified. There is normal hepatopedal flow in the portal vein. Ultrasound elastography of the liver was performed with 10 separate measurements of the liver parenchyma with the patient in the supine position. Measurements were obtained approximately 2 cm below Micheal's capsule and perpendicular to the capsule. The median shear wave velocity is 1.37 m/s. The interquartile range/median (IQR/median) is 0.15. Gallbladder and biliary tree: There are multiple polyps in the gallbladder measuring up to 9 mm in size. The gallbladder is otherwise unremarkable, without evidence of calculi, wall thickening, or pericholecystic fluid. There is no sonographic Cerna sign. The common bile duct is normal in caliber measuring 3 mm. Right Kidney: The right kidney measures 10.8 cm in length. The right kidney is unremarkable, without evidence of masses, hydronephrosis, or calculi. Pancreas: The pancreatic head, neck, and body are unremarkable. The pancreatic tail is obscured by bowel gas. Abdominal aorta and inferior vena cava: The visualized portions of the abdominal aorta and inferior vena cava are normal in caliber. There is no free fluid in the right upper quadrant. US/US abdomen joyner w elastography IMPRESSION: 1. Hepatic steatosis. 2. Gallbladder polyps measuring up to 9 mm in size. Follow-up is recommended. The median shear wave velocity in the liver is 1.37 m/s, corresponding to a median liver stiffness of 5.72 kPa. The IQR/median value is 0.15. This is indicative of a quality data set. Findings are indicative of a low elastography value which rules out advanced chronic liver disease in asymptomatic patients. REFERENCE: Society of Radiologists in Ultrasound Liver Stiffness Thresholds (2020): LIVER STIFFNESS THRESHOLDS: *Shear wave velocity less than 1.3 m/s (Liver Stiffness equal or less than 5 kPa): High probability of being normal. *Shear wave velocity less than 1.7 m/s (Liver Stiffness less than 9 kPa): In the absence of other known clinical signs, rules out compensated advanced chronic liver disease. *Shear wave velocity between 1.7-2.1 m/s (Liver Stiffness 9-13 kPa): Suggestive of compensated advanced chronic liver disease but need further test for confirmation. *Shear wave velocity between 2.1-2.4 m/s (Liver Stiffness 13-17 kPa): Rules in compensated advanced chronic liver disease. *Shear wave velocity greater than 2.4 m/s (Liver Stiffness over 17 kPa): Suggestive of clinically significant portal hypertension. QUALITY OF DATA SET: *IQR/Median value equal or less than 0.15 implies a quality data set. *IQR/Median value over 0.15 implies a poor quality data set. SIGNIFICANT CHANGE FROM PRIOR EXAM: Significant change if liver stiffness measurement is 10% or greater from prior exam. OTHER CONSIDERATIONS: The stage of liver fibrosis may be overestimated in the setting of acute hepatitis, liver inflammation, elevated liver function tests, hepatic vascular congestion, obstructive cholestasis, non-fasting state, and infiltrative diseases such as amyloidosis and lymphoma. In some patients with NAFLD, the liver stiffness thresholds for compensated advanced chronic liver disease may be lower. In causes other than viral hepatitis and NAFLD, liver stiffness thresholds are not well established. Electronically signed by: Reuben Harris MD 09/04/2025 09:13 AM EDT
== END 2025-09-04 08:05 | disposition home or self-care (01) ==
LOC: HO.US 08:04
PROVIDERS: PCP Internal Medicine; Visit Provider Internal Medicine
DX: R79.89 Other specified abnormal findings of blood chemistry (principal)
CPT/HCPCS: 76705; 76981

== ENCOUNTER → 2025-09-04 08:06 | Outpatient (BNV) | payer MEDICARE, SELFPAY | PROVIDERS: PCP Internal Medicine; Visit Provider Radiology Diagnostic Radiology | DX: K76.0 Fatty (change of) liver, not elsewhere classified (principal); K82.8 Other specified diseases of gallbladder | CPT/HCPCS: 76705 ==

== ENCOUNTER 2025-09-12 09:36 | Outpatient (REF) | payer MEDICARE, SELFPAY ==
[2025-09-12 13:36] LABS: Alanine Aminotransferase 46 U/L (0-40); Albumin Level 4.6 g/dL (3.5-5.0); Alkaline Phosphatase 93 U/L (39-117); Anion Gap 13 (12-20); Aspartate Amino Transferase 35 U/L (5-37); Blood Urea Nitrogen 14 mg/dL (9-16); Calcium 9.6 mg/dL (8.4-10.2); Carbon Dioxide 23 mmol/L (22-29); Chloride 109 mmol/L (96-108); Cholesterol 158 mg/dL (<200); Estimated Glomerular Filt Rate > 60; HDL Cholesterol 32 mg/dL (>40); Potassium 4.3 mmol/L (3.3-5.1); Sodium 141 mmol/L (135-145); Total Protein 7.6 g/dL (6.5-8.0); Triglycerides 152 mg/dL (<150)
[2025-09-12 13:57] LABS: Microalbum/Creatinine Ratio Ur 3.4 ug/mg cr (<30)
== END 2025-09-12 09:37 | disposition home or self-care (01) ==
LOC: HO.HMGCLDS 09:36
PROVIDERS: PCP Internal Medicine; Visit Provider Internal Medicine
DX: E11.9 Type 2 diabetes mellitus without complications (principal); E78.5 Hyperlipidemia, unspecified; I10 Essential (primary) hypertension
CPT/HCPCS: 36415; 80053; 80061; 82043; 82570; 83036

== ENCOUNTER 2025-09-19 09:31 | Outpatient (AMB) | payer MEDICARE, SELFPAY ==
[2025-09-19 09:41] VITALS: BP 130/72; PULSE 102; RESP 16; TEMP 36.5; O2SAT 99; BMI 29.0
--- NOTE | 2025-09-19 09:41 | AM.OFFVISMDC ---
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 Advanced Directives help? patients prepare for current and future decisions about their medical treatment? and place of care. Discussed with patient that it is a process where a patients? current condition and prognosis are reviewed, their wishes for information? regarding their illness are elicited, and likely medical dilemmas are presented? and options discussed. The form can be amended as needed, reviewed yearly and? make changes as needed IPPE/AWV ? year old presents? for her ? Annual? Wellness Visit, initial visit.? Medical / Social History Reviewed? Past Medical History ?Yes? . ? [place]? of Care / Care Team list updated ?Yes . ? Surgical/Hospitalization? History ?Yes . ? Current Medications? (including OTC and supplements) ?Yes . ? Family History ?Yes? . ? Tobacco? Control form ?Yes . ? AUDIT-C (Alcohol use) form? ?Yes . ? Illicit drug use in Social? History ?Yes . ? Current diagnosis of? depression? ?No ? Appropriate PHQ2/PHQ9? completed ?Yes . ? Data entered by ?Medical? [facility] Review Nurse and reviewed by provider ? Fall Risk ? Fall? History? Have you had any falls with? injury in the past year? ?No . ? Have you had two or more? falls in the past year? ?No . ? Fall Risk Assessment: ?No? falls in the past year . ? HRA filled out by? the patient, reviewed by Provider and scanned. ? IPPE/AWV ? Balance? [place]? ?Yes . ? Tandem? walk ?Yes . ? Walk and? Turn ?Yes . ? Rise from? sit to stand ?Yes . ?Vision? Corrective? lens ?Yes ? Vision? screen ? Up-to-date, has an appointment [] for vision? screening and glaucoma screening ?Hearing? Whisper? test ?pass .? Initiated the conversation about Advanced Directives. Advanced Directives help? patients prepare for current and future decisions about their medical treatment? and place of care. Discussed with patient that it is a process where a patients? current condition and prognosis are reviewed, their wishes for information? regarding their illness are elicited, and likely medical dilemmas are presented? and options discussed. The form can be amended as needed, reviewed yearly and? make changes as needed Written? Plan?Completed. See Patient? Documents. [facility] Medical History Hyperglycemia Normal colonoscopy Annual physical exam BPH (benign prostatic hyperplasia) Sleep apnea Hyperlipidemia Hypertension Surgical History Hx of colonoscopy Family History Father No problems noted. Mother HTN (hypertension) Stroke Brother No problems noted. Brother No problems noted. Son No problems noted. 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 Cognitive needs: No Hearing needs: No Vision needs: No Questionnaire Medicare Wellness Checkup [age] What gender do you identify with?: male During the past 4 weeks, how much have you been bothered by emotional problems such as feeling anxious, depressed, irritable, sad or downhearted, and blue?: not at all During the past 4 weeks, has your physical & emotional health limited your social activities with family, friends, neighbors, or groups?: not at all During the past 4 weeks, how much bodily pain have you generally had?: no pain During the past 4 weeks, was someone available to help you if you needed & wanted help?: no, not at all During the past 4 weeks, what was the hardest physical activity you could do for at least 2 minutes?: moderate Can you get to places out of walking distance without help? (For eg., can you travel alone on buses, taxis or drive your car?): Yes Can you go shopping for groceries or clothes without someone's help?: Yes Can you prepare your own meals?: Yes Can you do your housework without help?: Yes Because of any health problems, do you need the help of another person with your personal care needs such as eating, bathing, dressing or getting around the house?: No Can you handle your own money without help?: Yes During the past 4 weeks, how would you rate your health in general?: good During the past 4 weeks how have things been going for you?: good & bad parts about equal Are you having difficulties driving your car?: no Do you always fasten your seat belt when you are in a car?: yes, usually During past 4 weeks, have you been bothered by the following: never: Sexual problems?, Trouble eating well?, Teeth or denture problems?, Problems using the telephone? and Tiredness or fatigue? and sometimes: Falling or dizzy when standing up Have you fallen 2 or more times in the past year?: No Are you afraid of falling?: No During the past 4 weeks, how many drinks of wine, beer, or other alcoholic beverages did you have?: 1 drink or less per week Do you exercise for about 20 minutes 3 or more times a week?: yes, most of the time Have you been given information to help with the following?: no: Hazards in your house that might hurt you? and no: Keeping track of your medications? How often do you have trouble taking medicines the way you have been told to take them?: I always take medicine as prescribed How confident are you that you can control & manage most of your health problems?: not very confident What is your race?: White Mini Mental State Exam (MMSE) Orientation What is the (year) (season) (date) (day) (month)?: year (2024), season (Fall), date (09/19/25), day () and month (August) Where are we (state) (county) (town or city) (hospital) (floor)?: state ([place] critical [place] hospital ([place]), town or city ([place]), hospital/clinic ([facility] [place]) and floor Registration Name of 3 unrelated objects clearly and slowly, then ask patient to repeat all 3 of them. (1st repeat determines score. Make sure they can repeat all three): object 1, object 2 and object 3 Attention & Calculation (CHOOSE ONE) Spell WORLD backwards (DLROW): 5 letters Recall Ask patient to repeat the 3 items from question #3.: object 1, object 2 and object 3 Language Show patient a wristwatch & ask what it is. Repeat for pencil.: watch and pencil Ask the patient to repeat the phrase 'No ifs, ands, or buts' after you.: correct Ask the patient to 'take a piece of paper with their right hand' 'fold paper in half' 'place paper on floor': take paper in right hand, fold paper in half and place paper on floor Print the sentence 'CLOSE YOUR EYES' on a piece. If patient actually closes eyes then score.: followed written direction Give patient a blank piece of paper & ask to write a sentence. Score if it contains a noun & verb.: sentence contains subject and verb Score Score: 29 PHQ-9 Over the last 2 weeks, how often have you been bothered by any of the following problems? 1. Little interest or pleasure in doing things: not at all 2. Feeling down, depressed, or hopeless: not at all 3. Trouble falling or staying asleep, or sleeping too much: not at all 4. Feeling tired or having little energy: nearly every day 5. Poor appetite or overeating: not at all 6. Feeling bad about yourself - or that you are a failure or have let yourself or your family down: not at all 7. Trouble concentrating on things, such as reading the newspaper or watching television: not at all 8. Moving or speaking so slowly that other people could have noticed. Or the opposite - being so fidgety or restless that you have been moving around a lot more than usual: not at all 9. Thoughts that you would be better off or of hurting yourself in some way: not at all Total score: 3 Depression Screening Interpretation: Negative Depression Screening Done: Yes 66391 - PHQ-9 Billing: Yes Source: Developed by Drs. Reuben Arreola, Mai Gore, Chaparro Muniz and colleagues, with an educational keisha from [employer]. Review of Systems Const All systems reviewed & are unremarkable except as noted in HPI and below Eyes Reports no additional complaints ENT Reports no additional complaints Card Reports no additional complaints Resp Reports no additional complaints GI Reports no additional complaints Reports no additional complaints Physical Exam Vital Signs: Last Vital Signs Temp 97.7 F 09/19/25 09:41 Pulse 102 H 09/19/25 09:41 Resp 16 09/19/25 09:41 BP 130/72 09/19/25 09:41 Pulse Ox 99 09/19/25 09:41 Oxygen Delivery Method Room Air 09/19/25 09:41 BMI result Body Mass Index 29.0 Const General: no acute distress HEENT Head: Yes normal to inspection Ears: TM's normal bilaterally Eyes General: appearance normal, both eyes and all related structures Neck Neck: Yes no lymphadenopathy and Yes supple Resp Effort & Inspection: normal respiratory effort Auscultation: clear to auscultation bilaterally Cardio Rhythm: regular rhythm Heart sounds: S1 normal heart sound present and S2 normal heart sound present GI Inspection: Yes normal to inspection Palpation (GI): Soft to palpation Percussion: Yes normal to percussion Auscultation: normal bowel sounds Extrem General: Yes no clubbing, cyanosis or edema Assessment & Plan Assessment & Plan (1) Hypertension: Code(s): I10 - Essential (primary) hypertension Plan: Continue current medications (2) Hyperlipidemia: Code(s): E78.5 - Hyperlipidemia, unspecified Plan: Continue statin (3) Annual physical exam: Code(s): Z00.00 - Encounter for general adult medical examination without abnormal findings Plan: Regular physical activity well-balanced diet discussed with the patient. He is up-to-date with the colonoscopy (4) DM type 2 (diabetes mellitus, type 2): Comment: A1C 7% 05/2025, 6 % 08/2025, diet controlled Code(s): E11.9 - Type 2 diabetes mellitus without complications Plan: A1c is 6%, ADA diet regular exercise discussed with the patient follow-up in 6 months with a fasting labs before Orders: Orders Lipid Panel 6 Months E11.9 - Type 2 diabetes mellitus without complications, E78.5 - Hyperlipidemia, unspecified, I10 - Essential (primary) hypertension, Z00.00 - Encounter for general adult medical examination without abnormal findings Complete Blood Count Auto Diff 6 Months E11.9 - Type 2 diabetes mellitus without complications, E78.5 - Hyperlipidemia, unspecified, I10 - Essential (primary) hypertension, Z00.00 - Encounter for general adult medical examination without abnormal findings UA w Microscopic 6 Months E11.9 - Type 2 diabetes mellitus without complications, E78.5 - Hyperlipidemia, unspecified, I10 - Essential (primary) hypertension, Z00.00 - Encounter for general adult medical examination without abnormal findings Hemoglobin A1c 6 Months E11.9 - Type 2 diabetes mellitus without complications, E78.5 - Hyperlipidemia, unspecified, I10 - Essential (primary) hypertension, Z00.00 - Encounter for general adult medical examination without abnormal findings Comprehensive [place]. Panel Fast 6 Months E11.9 - Type 2 diabetes mellitus without complications, E78.5 - Hyperlipidemia, unspecified, I10 - Essential (primary) hypertension, Z00.00 - Encounter for general adult medical examination without abnormal findings Medications: New ketoconazole 2% 1 appl topical DAILY 60 grams 0RF Quality Reporting (2019) Depression/Bipolar (159/160/161/177) PHQ-9: Total score: 3 Coding Level of Care Code Medicare Subsequent (G0439) Diagnoses Hypertension I10 Hyperlipidemia E78.5 Annual physical exam Z00.00 DM type 2 (diabetes mellitus, type 2) E11.9 CPT Codes Advance Care Planning - Advance Care Planning discussion: On file, no changes ([id number]) Advance Care Planning - Time spent: 1-15 minutes, on File ([id number]) Additional Codes PHQ-9 - 01478 - PHQ-9 Billing: Yes ([id number]) Advance Care Planning Advance Care Planning discussion: On file, no changes Forms completed: Health Care Proxy Time spent: 1-15 minutes, on File
== END 2025-09-19 10:27 | disposition home or self-care (01) ==
LOC: HO.HMCC 09:32
PROVIDERS: PCP Internal Medicine; Visit Provider Internal Medicine
DX: Z00.00 Encounter for general adult medical examination without abnormal findings (principal); I10 Essential (primary) hypertension; E78.5 Hyperlipidemia, unspecified; E11.69 Type 2 diabetes mellitus with other specified complication

== ENCOUNTER → 2025-09-19 09:31 | Outpatient (BNVA) | payer MEDICARE, SELFPAY | PROVIDERS: PCP Internal Medicine; Visit Provider Internal Medicine | DX: Z13.31 Encounter for screening for depression (principal) | CPT/HCPCS: 96127 ==

== ENCOUNTER 2025-11-19 13:45 | Outpatient (AMB) | payer MEDICARE, SELFPAY ==
--- NOTE | 2025-11-19 13:59 | A.OFFPC_ITS ---
Vital Signs 11/19/25 14:00 Height 5 ft 8 in Weight 191 lb BMI 29.0 BP 126/80 Blood Pressure Location Lt brachial Position Sitting Respiration 17 Pulse 115 H Pulse Source Pulse Oximeter Temp 97.8 F Temp Source Oral Pulse Oximetry (%) 98 Oxygen Delivery Method Room Air Intake Visit Reasons: Skin concerns Intake Note: Pt is here today for a sick visit. Pt c/o rash on his legs for about a month or two. Allergies No Known Allergies Allergy (Verified 09/19/25 09:42) Medication List - Last Reconciled 11/19/25 by Laura Montejo MD amlodipine 5 mg PO DAILY atorvastatin (Lipitor) 40 mg PO DAILY ketoconazole 2% 1 appl topical DAILY olmesartan 20 mg PO DAILY Tobacco use date assessed: 11/19/25 Dental Screening Dental Screen Date: 01/23/25 HPI Skin concerns HPI Details Patient presents complaining of recurrent pruritic rash on both shins worse in the winter time. Patient complains of pruritic rash in inguinal and scrotal area. He denies any change in laundry detergent or soap. Patient has been avoiding taking hot water shower or baths He tried using ketoconazole cream with only temporary relief. Hypertension is controlled on current medications PFSH Medical History Elevated LFTs DM type 2 (diabetes mellitus, type 2) Hyperglycemia Normal colonoscopy Annual physical exam BPH (benign prostatic hyperplasia) Sleep apnea Hyperlipidemia Hypertension Surgical History Hx of colonoscopy Family History Father No problems noted. Mother HTN (hypertension) Stroke Brother No problems noted. Brother No problems noted. Son No problems noted. 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 Review of Systems Const All systems reviewed & are unremarkable except as noted in HPI and below ENT Reports no additional complaints Card Reports no additional complaints Resp Reports no additional complaints GI Reports no additional complaints Reports no additional complaints Physical exam (Primary Care) Vital Signs: Last Vital Signs Temp 97.8 F 11/19/25 14:00 Pulse 115 H 11/19/25 14:00 Resp 17 11/19/25 14:00 BP 126/80 11/19/25 14:00 Pulse Ox 98 11/19/25 14:00 Oxygen Delivery Method Room Air 11/19/25 14:00 BMI result Body Mass Index 29.0 Tobacco/Smoking Status: Tobacco use Status Tobacco use date assessed 11/19/25 11/19/25 14:09 Patient Tobacco Use Status Never used Tobacco 11/19/25 13:59 e-Cigarette/Vaping Use Never Used 11/19/25 13:59 Thrive Assessment: Date of Thrive Assessment Date Thrive assessed 05/08/25 11/19/25 13:59 Const General: no acute distress Neck Neck: Yes supple Resp Effort & Inspection: normal respiratory effort Auscultation: clear to auscultation bilaterally Cardio Rhythm: regular rhythm Heart sounds: S1 normal heart sound present and S2 normal heart sound present Skin Other: Erythematous papular rash on anterior shins bilaterally, there is a scaly erythematous rash in the inguinal area bilaterally Results AMB Random Glucose (hemocue) AMB Random Glucose (hemocue) 109 mg/dL Last Edit by WALDO Eden on 11/19/25 14:30 Results Reviewed Results Reviewed: Laboratory Last Values Random Glu (Clinic) 109 mg/dL 11/19/25 14:28 Coding Level of Care Code Est Pt Level 3 (48470) Diagnoses Eczema L30.9 Candidiasis of genitalia B37.49 Assessment & Plan Assessment & Plan (1) Eczema: Code(s): L30.9 - Dermatitis, unspecified Category: Medical Plan: Clobetasol ointment is prescribed and 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 Supportive care avoiding prolonged moisture exposure and using cornstarch in the inguinal area discussed Orders: Orders UA w Microscopic Today L85.3 - Xerosis cutis AMB Random Glucose (hemocue) Today Z13.9 - Encounter for screening, unspecified Referrals Dermatology Referral L85.3 - Xerosis cutis Medications: New fluconazole 100 mg PO DAILY 10 tabs 0RF clobetasol 0.05% 1 appl topical BEDTIME 60 grams 2RF
[2025-11-19 14:00] VITALS: BP 126/80; PULSE 115; RESP 17; TEMP 36.6; O2SAT 98; BMI 29.0
== END 2025-11-19 14:44 | disposition home or self-care (01) ==
LOC: HO.HMCC 13:46
PROVIDERS: PCP Internal Medicine; Visit Provider Internal Medicine
DX: L30.9 Dermatitis, unspecified (principal); B37.49 Other urogenital candidiasis; Z13.9 Encounter for screening, unspecified

== ENCOUNTER → 2025-11-19 13:45 | Outpatient (BNVA) | payer MEDICARE, SELFPAY | PROVIDERS: PCP Internal Medicine; Visit Provider Internal Medicine | DX: L30.9 Dermatitis, unspecified (principal); B37.49 Other urogenital candidiasis; L85.3 Xerosis cutis; I10 Essential (primary) hypertension; Z13.1 Encounter for screening for diabetes mellitus | CPT/HCPCS: 82948; 99212 ==

== ENCOUNTER 2025-11-20 10:54 | Outpatient (REF) | payer MEDICARE, SELFPAY ==
[2025-11-20 14:09] LABS: Appearance Urine Clear; Glucose Urine UA >=1000 mg/dL (Negative); PH 5.0 (5.0-9.0); Specific Gravity - Urine >= 1.030 (1.005-1.025); UMIC TRIGGER UA YES
== END 2025-11-20 10:55 | disposition home or self-care (01) ==
LOC: HO.HMGCLDS 10:54
PROVIDERS: PCP Internal Medicine; Visit Provider Internal Medicine
DX: L85.3 Xerosis cutis (principal)
CPT/HCPCS: 81001